=== PATIENT | male | born 1940 | race Caucasian/White ===

== ENCOUNTER 2022-07-02 19:33 | Inpatient (IN) | payer OTHER ==
[~2022-07-02] VITALS: Ht 152.4 cm; Wt 76.2 kg
[2022-07-02] MEDS ORDERED: SIMVASTATIN5 MG (19:57)
[2022-07-02] MEDS ORDERED: METFORMIN HCL850 MG (19:57)
[2022-07-02] MEDS ORDERED: GLIPIZIDE XL5 MG (19:57)
[2022-07-02] MEDS ORDERED: PLAVIX75 MG (19:57)
[2022-07-02] MEDS ORDERED: LOSARTAN POTASS50 MG (19:57)
[2022-07-06] MEDS ORDERED: LEVOFLOXACIN750 MG PO (15:56)
[2022-07-06] MEDS ORDERED: INTESTINEX680 M1 PO (15:56)
[2022-07-06] MEDS ORDERED: TAMS0.4C PO (15:56)
== END 2022-07-06 21:37 | disposition home or self-care (01) | DRG 726 ==
LOC: ER 19:33 → MEDJ 07-03 06:22
PROVIDERS: ADMIT Internal Medicine; ATTEND Internal Medicine
PROC: 0T9B70Z Drainage of Bladder with Drainage Device, Via Natural or Artificial Opening (ICD-10-PCS; principal; 2022-07-03)
DX: N40.1 Benign prostatic hyperplasia with lower urinary tract symptoms (principal); N17.9 Acute kidney failure, unspecified; N30.41 Irradiation cystitis with hematuria; N41.1 Chronic prostatitis; R33.8 Other retention of urine; I10 Essential (primary) hypertension; E11.9 Type 2 diabetes mellitus without complications; Z79.84 Long term (current) use of oral hypoglycemic drugs; Z85.46 Personal history of malignant neoplasm of prostate